=== PATIENT | female | born 1945 | race Caucasian/White ===

== ENCOUNTER 2019-04-21 21:49 | Inpatient (IN) ==
[2019-04-21 23:04] LABS: AGAP 20; ALB/GLOB RATIO 1.4; ALBUMIN 4.9 g/dL (3.5-5.0); ALKALINE PHOSPHATASE 119 U/L (32-104); AMYLASE 64 U/L (20-200); BUN 17 mg/dL (8-22); CALCIUM 10.7 mg/dL (8.8-10.2); CHLORIDE 99 mmol/L (98-107); COSMO 289; CREATININE 0.9 mg/dL (0.5-0.9); ESTIMATED GFR > 60; GLUCOSE 175 mg/dL (70-104); GOT 14 U/L (10-30); GPT 9 U/L (10-36); LIPASE 14 U/L (13-60); POTASSIUM 4.2 mmol/L (3.5-5.1); SODIUM 142 mmol/L (136-145); TCO2 23 mmol/L (25-35); TOTAL BILIRUBIN 0.27 mg/dL (0.20-1.00); TOTAL PROTEIN 8.3 g/dL (6.3-8.3)
[2019-04-21 23:06] LABS: BASO# 0.03 X1000 (0.0-0.2); BASO% 0.2 % (0.0-0.8); EOS# 0.05 X1000 (0.0-0.7); EOS% 0.3 % (0.0-10.0); HEMATOCRIT 44.6 % (37.0-47.0); HEMOGLOBIN 14.2 g/dL (12.0-16.0); IMM GRAN# 0.03 X1000 (0.0-0.04); IMM GRAN% 0.2 % (0.0-0.5); LYMPH# 1.76 X1000 (1.2-3.4); LYMPH% 10.7 % (20.5-51.1); MCH 23.4 PG (27-31); MCHC 31.8 g/dL (33-37); MCV 73.6 FL (81-99); MONO% 5.5 % (1.7-9.3); MPV 9.2 FL (7.4-10.4); NEUT# 13.63 X1000 (1.4-6.5); NEUT% 83.1 % (42.2-75.2); PLT 649 X1000 (130-400); RBC 6.06 XMIL (4.2-5.4); RDW 16.1 % (11.5-14.5)
[2019-04-22] MEDS ORDERED: MORPHINE IV ONE (00:54)
[2019-04-22] MEDS ORDERED: BENTYL IM ONE (00:54)
[2019-04-22] MEDS ORDERED: ZOFRAN IV ONE ×2 (00:54→02:26)
[2019-04-22] MEDS ORDERED: NS 1,000 ML IV ONE (00:54)
[2019-04-22] MEDS ORDERED: FENTANYL IV ONE (02:26)
--- NOTE | 2019-04-22 04:09 | PROVIDER DOCUMENTATION ---
This chart was entered by Stefanie Santoyo Scribe, acting as scribe for Fernandez Chan MD. HPI-General Adult - General Chief Complaint: Nausea/Vomiting Stated Complaint: VOMITING, HURTING Time Seen by Provider: 04/22/19 00:47 Source: patient Allergies/Adverse Reactions: Patient Allergies Allergy/AdvReac Type Severity Reaction Status Date / Time ciprofloxacin [From Cipro] Allergy Unknown Verified 08/20/17 20:38 Tetracyclines Allergy Unknown Verified 08/20/17 20:38 Home Medications: Home Medication List Medication Instructions Recorded Confirmed Last Taken Type Amitriptyline [Elavil] 25 mg PO HS 08/21/17 08/21/17 Unknown History Amlodipine/Atorvastatin 1 each PO 08/21/17 Unknown History [Amlodipine-Atorvast 5-40 mg] Chlordiazepoxide/Clidinium Br 4XDAY 08/21/17 Unknown History [Chlordiazepoxide-Clidinium Cap] Clonazepam [Klonopin] 0.5 mg PO 08/21/17 Unknown History Hydrochlorothiazide 25 mg PO 08/21/17 Unknown History Hydrocodone/Acetaminophen [Wilmer 1 each PO 08/21/17 Unknown History 7.5-325 Tablet] Nizatidine [Axid] 150 mg PO 08/21/17 Unknown History Metformin E.r. [Glucophage Xr] 500 mg PO BID CC 08/22/17 08/22/17 08/20/17 00:00 History 1 - History of Present Illness -Gen Adult Nature of Presenting Problems: pt is a 73 yr old female presenting with 1 day complaint of abdominal pain, nausea, vomiting and loose stool. pt has ostomy, reports filling with loose stool, no fever/chills, no other complaints Location of Pain/Injury: reports: abdomen Pain Radiation: reports: no radiation Quality of Pain: reports: cramping, dull Severity: reports: moderate Onset/Duration: reports: this afternoon Timing: reports: still present Context/Activities at Onset: reports: light activity Modifying Factors: improves with: other medication Associated Symptoms: reports: diarrhea, nausea, vomiting. denies: back/neck pain, fever/chills, genitourinary problems, shortness of breath Similar Symptoms Previously?: No Recently seen or treated by another doctor?: No Review of Systems - Adult - REVIEW OF SYSTEMS - ADULT Constitutional: denies: chills, fever Eyes: reports: no symptoms reported Ears, Nose, Mouth & Throat: reports: no symptoms reported Cardiovascular: denies: chest pain, palpitations, syncope Respiratory: denies: cough, shortness of breath Gastrointestinal: reports: abdominal pain, diarrhea, nausea, vomiting Genitourinary: reports: no symptoms reported Musculoskeletal: reports: no symptoms reported Integumentary: reports: no symptoms reported Neurological: reports: no symptoms reported Psychiatric: reports: no symptoms reported Endocrine: reports: no symptoms reported Hematologic/Lymphatic: reports: no symptoms reported Allergic/Immunologic: reports: no symptoms reported All Other Systems: Reviewed and Negative Past History - Adult - PAST MEDICAL HISTORY-ADULT Review of Records: reports: Old Records Reviewed, Nursing Assessment Review, Medications Reviewed, Social history reviewed & non-contributory. Major Childhood Illnesses: reports: denies history Cardiovascular: reports: HTN Respiratory: reports: denies history Gastrointestinal: reports: cancer (colon), other (diverticulitis) Obstetrical/Gynecological: reports: denies history Genitourinary: reports: denies history Musculoskeletal: reports: denies history Neurological: reports: denies history Endocrine/Immune: reports: Diabetes Other Conditions: reports: denies history - PRIOR SURGERIES/PROCEDURES Surgical/Procedure History: reports: other (colostomy) - IMMUNIZATION STATUS Childhood Immunizations: See Nurse Assessment Flu Vaccine: See Nurse Assessment - FAMILY HISTORY Family History: reviewed, not pertinent - SOCIAL HISTORY Smoking: quit greater than 1 year Substance Use: denies Living Situation: family Physical Exam-General - PHYSICAL EXAM-ADULT Initial Vital Signs Reviewed: Yes - CONSTITUTIONAL General Appearance: appears well, alert, no apparent distress, obese - EYES Eyes: PERRL/EOMI - HEAD, EARS, NOSE, MOUTH & THROAT HENMT: normocephalic/atraumatic, moist mucous membranes - NECK Neck: non-tender, full range of motion, supple, normal inspection - RESPIRATORY Respiratory: chest non-tender, lungs clear, normal breath sounds - CARDIOVASCULAR Cardiovascular: normal peripheral pulses, regular rate, rhythm - GASTROINTESTINAL (ABDOMEN) Abdominal Exam: normal bowel sounds, non tender, soft - LYMPHATIC Lymphatic: no adenopathy - MUSCULOSKELETAL Back Exam: normal inspection, no CVA tenderness, no vertebral tenderness Extremity: normal range of motion, non-tender, normal inspection - SKIN Integumentary: normal color, normal turgor, warm/dry - NEUROLOGIC Neurologic: grossly normal, no motor/sensory deficits - PSYCHIATRIC Psych/Mental Status: normal mood/affect Progress - PLAN OF CARE/RESULTS Progress/Plan/Lab Results: Vital Signs - 8 hr 04/21/19 22:15 Temperature 98.2 F Pulse Rate 114 H Respiratory Rate 16 Blood Pressure 160/73 O2 Sat by Pulse Oximetry 97 Laboratory Results - last 24 hr 04/21/19 04/21/19 22:27 22:27 WBC 16.40 H RBC 6.06 H Hgb 14.2 Hct 44.6 MCV 73.6 L MCH 23.4 L MCHC 31.8 L RDW Std Deviation 16.1 H Plt Count 649 H MPV 9.2 Immature Gran % (Auto) 0.2 Neut % (Auto) 83.1 H Lymph % (Auto) 10.7 L Owsley % (Auto) 5.5 Eos % (Auto) 0.3 Baso % (Auto) 0.2 Immature Gran # (Auto) 0.03 Neut # (Auto) 13.63 H Lymph # (Auto) 1.76 Owsley # (Auto) 0.90 H Eos # (Auto) 0.05 Baso # (Auto) 0.03 Sodium 142 Potassium 4.2 Chloride 99 Carbon Dioxide 23 L Anion Gap 20 BUN 17 Creatinine 0.9 Estimated GFR/1.73 m2 > 60 BUN/Creatinine Ratio 19 Glucose 175 H Calculated Osmolality 289 Calcium 10.7 H Total Bilirubin 0.27 AST 14 ALT 9 L Alkaline Phosphatase 119 H Total Protein 8.3 Albumin 4.9 Globulin 3.4 Albumin/Globulin Ratio 1.4 Amylase 64 Lipase 14 Orders Category Date Time Status CT ABD/PELVIS W/PO AND IV CON [CT] Stat Exams 04/22/19 00:53 Ordered AMYLASE [CHEM] Stat Lab 04/21/19 22:27 Completed CBC WITH ELECTRONIC DIFF [HEME] Stat Lab 04/21/19 22:27 Completed COMPREHENSIVE METABOLIC PANEL [CHEM] Stat Lab 04/21/19 22:27 Completed LIPASE [CHEM] Stat Lab 04/21/19 22:27 Completed UA NIMS W/REFLEX CULT [URINALYSIS] Stat Lab 04/21/19 22:33 Uncollected 0.9% Sodium Chloride Inj [Ns] 1,000 ml Med 04/22/19 00:54 Active IV 999 mls/hr Dicyclomine [Bentyl] Med 04/22/19 00:54 Discontinued 20 mg IM NOW ONE Morphine Med 04/22/19 00:54 Discontinued 4 mg IV NOW ONE Ondansetron [Zofran] Med 04/22/19 00:54 Discontinued 8 mg IV NOW ONE CT shows SBO, NG placed, spoke with Dr. Arzola and he will consult, will admit to the hospitalist Result Diagrams: 04/21/19 22:27 04/21/19 22:27 Departure - Departure Date of Disposition Decision: 04/22/19 Time of Disposition Decision: 04:09 DIAGNOSIS: Small bowel obstruction Disposition: ADMITTED INPATIENT Certified Medical Emergency: Emergent Condition: Stable Referrals and Follow-Ups: Bong Linton [Primary Care Provider] - - Critical Care Note This patient required my direct & personal management of CC.: No Attestation - Physician/ LEIDA Attestation Patient care was provided by Advanced Practice Provider:: No The physician spent face to face time with patient:: Yes Advanced Practice Provider documentation review:: Supervising physician onsite and consulted in the evaluation and care of this patient. The physician did have a face to face encounter with the patient. This chart was documented by the indicated scribe, (Stefanie Santoyo Scribe) and accurately reflects the services I performed and decisions made by me, Fernandez Chan MD, as attested by the provider's signature.
[2019-04-22] MEDS ORDERED: DILAUDID IV ONE (05:11)
[2019-04-22] MEDS ORDERED: SODIUM CHLORIDE 0.9% INJ ONE (05:12)
[2019-04-22] MEDS ORDERED: PHENERGAN IV ONE (05:12)
--- NOTE | 2019-04-22 07:23 | Diag Imaging Result Doc PS360 ---
EXAM: KUB ABDOMEN HISTORY: NG TUBE PLACEMENT TECHNIQUE: Single view COMPARISON: 08/21/2017 FINDINGS: A nasogastric tube overlies the esophagus and stomach. The stomach is distended with air. No free air beneath the diaphragm. No organomegaly. Intravenous contrast is present in the collecting systems. IMPRESSION: Nasogastric tube appears to be within the stomach Electronically signed by Ishmael Dixon 04/22/2019 7:20 AM
--- NOTE | 2019-04-22 07:59 | HISTORY AND PHYSICAL ---
PRIMARY CARE PROVIDER: Dr. Bong Linton. DATE AND TIME: 04/22/2019 at 0530. CHIEF COMPLAINT: Abdominal pain with nausea and vomiting. HISTORY OF PRESENT ILLNESS: Ms. Manrique is a 73-year-old female with a past medical history most notable for a history of rectal cancer status post abdominoperineal resection with colostomy placement and pelvic floor reconstruction. The patient also does have a history of diverticulitis, as well as history of a small bowel obstruction in July of 2017. The patient states that since Thursday she has not been feeling well. She has been having periumbilical and left upper quadrant abdominal pain that she states is a constant pain. She reported that at this time it is a constant dull ache that is a 3/10, though previously her pain was much worse, though since receiving pain medicine in the ER, her pain has improved. She also states that since Thursday she has been having nausea and vomiting. She reports that in the last 24 hours she has vomited approximately 7 times. She denies any hematemesis or coffee-ground appearing emesis. She also did state that she noticed a change in her stool consistency in her colostomy bag, that it had been much more loose than normal, though she denies any fever, body aches, or chills. She denies any dizziness, headache, chest pain, shortness of breath or cough. She reported that she just recently was treated for urinary tract infection and has a history of chronic urinary tract infections, though is not reporting any symptoms at this time. She denies any dysuria or urinary frequency. She does have some aches and pains from her reported arthritis, though states this pain is like her usual arthritic pain and is not changed in nature or intensity. Other than this, she denies any other numbness, tingling, or swelling in extremities. On evaluation in the ER, patient was noted to have leukocytosis with a white blood cell count of 16,400. We are still awaiting urinalysis results at this time, though CT abdomen and pelvis with IV contrast only. From what I understand the patient was not able to tolerate oral contrast. It did show a moderate partial small bowel obstruction with transient point in the left hemipelvis. There was no free air or pneumatosis identified. The patient has since had an NG tube placed. We are awaiting to confirm placement at this time, though she did report that her pain and nausea have improved. She will be admitted to the surgical floor for further evaluation of small bowel obstruction. REVIEW OF SYSTEMS: A 14 point review of systems was conducted with the patient. All were negative, except for pertinent positives mentioned in the above HPI. PAST MEDICAL HISTORY: 1. History of rectal cancer. 2. Pernicious anemia. 3. Chronic urinary tract infections. 4. Hypertension. 5. Anxiety. 6. Diabetes mellitus. 7. Gastroesophageal reflux disease. 8. Peptic ulcer disease. 9. Depression. 10. Bladder spasms. PAST SURGICAL HISTORY: 1. Abdominoperineal resection. 2. Colostomy placement. 3. Pelvic floor reconstruction. 4. Laparoscopic cholecystectomy. 5. Bilateral total knee replacement. SOCIAL HISTORY: The patient is a former smoker, though quit smoking many years ago. There is no known alcohol or illicit drug use. FAMILY HISTORY: Positive for her father having a history of heart disease. There is also a family history of hemochromatosis and diverticulitis. ALLERGIES: Patient has allergies to tetracycline and ciprofloxacin. HOME MEDICATIONS: 1. Elavil 25 mg p.o. at bedtime. 2. Amlodipine-atorvastatin 5--40 mg tablet 1 p.o. at bedtime. 3. Keflex 250 mg p.o. at bedtime. 4. Clonazepam 0.5 mg p.o. daily. 5. Vitamin B 12 1000 mcg IM as directed. 6. Dicyclomine 20 mg p.o. 4 times a day. 7. Trulicity 0.75 mg subcutaneous q. 7 days. 8. Hydrochlorothiazide 25 mg p.o. q.a.m. 9. Halliday 7.5 mg tablet 1 p.o. t.i.d. p.r.n. for pain. 10. Meclizine 25 mg p.o. t.i.d. p.r.n. for dizziness. 11. Metformin extended release 1000 mg p.o. b.i.d. 12. Nizatidine 150 mg p.o. b.i.d. 13. Zofran 4 mg p.o. four times a day. 14. MiraLAX 17 g p.o. daily. 15. Tolterodine tartrate extended release 4 mg capsule p.o. q.a.m. DIAGNOSTIC DATA: White blood cell count is 16,400, hemoglobin is 14.2, hematocrit is 44.6, platelet count is 649. Sodium 142, potassium 4.2, chloride 99, serum bicarbonate is 23. BUN 17, creatinine 0.9, GFR greater than 60. Glucose is 175, calcium 10.7. Liver function tests within normal limits, except for alkaline phosphatase is slightly elevated at 119. Amylase 64, lipase 14. CT abdomen and pelvis with IV contrast only showed a previous cholecystectomy with stable common bile duct dilation. There was no evidence for cholelithiasis. There was stable moderate proximal and mid small bowel distention with a transition point in the left hemipelvis. There was no pneumatosis or free air, and a stable fatty-containing periumbilical hernia, stable bladder prolapse and peristomal hernia containing loops of nondilated small bowel and colon. The radiologist's impression did note a moderate partial small bowel obstruction with transition point in the left hemipelvis. Pending diagnostic studies at this time are a urinalysis, magnesium, PT, PTT, and an x-ray abdomen for NG tube placement confirmation. PHYSICAL EXAMINATION: VITAL SIGNS: Most recent vital signs available at this time were temperature 98.2 degrees, heart rate 114, respirations 16, blood pressure is 160/73, oxygen saturation is 97% on room air. GENERAL: Ms. Manrique is a pleasant 73-year-old female. She was resting in the ER stretcher. She was in no acute distress. She was resting with her eyes closed, was easily arousable with verbal stimulation. The patient has received pain medication prior to my examination. Though once awoken, she was alert and oriented to person, place and time. She was able to answer questions appropriately and follow commands. HEENT: Head is atraumatic, normocephalic. Pupils are equal, round, reactive to light, were 3 mm bilaterally and brisk. Oral mucosa was slightly dry. Oropharynx is clear. NECK: Supple. Trachea midline. CARDIOVASCULAR: Patient has S1, S2. No murmurs, gallops, rubs appreciated with a slightly tachycardic rate that is regular. PULMONARY: Patient has symmetrical chest expansion bilaterally. Lung sounds are clear to auscultation in bilateral full garrett. ABDOMEN: Soft. She is tender upon palpation in the periumbilical area, as well as the left upper and lower quadrants. The abdomen does appear to be slightly distended. She does have a colostomy noted in the left lower abdomen. Bowel sounds were present, though were hypoactive. EXTREMITIES: No cyanosis or edema noted. Pulse, motor, and sensory were intact in all extremities. Radial pulses and pedal pulses were 2+ bilaterally. INTEGUMENTARY: The patient's skin is pink, warm, and dry. NEUROLOGICAL: Patient is alert and oriented to person, place, time and situation. She is able to move all extremities. There are no focal neurological deficits noted. ASSESSMENT AND PLAN: 1. Small bowel obstruction. We will place the patient on nothing by mouth. She has had a nasogastric tube placed in the emergency room. We are awaiting abdomen x-ray to confirm placement. We will provide gentle intravenous hydration, as-needed antiemetics and pain medication. We have placed a consultation with surgeon, Dr. Arzola. Will await their evaluation and further recommendations for management. 2. Nausea, vomiting. We will continue with as-needed antiemetics as mentioned above, as well as intravenous hydration. 3. Diabetes mellitus. We will hold the patient's regularly prescribed diabetic medications given that she is on nothing by mouth. We will do pattern fingerstick blood sugars, though we will place her on a patient-specific sliding scale regular insulin. We will continue to monitor closely. 4. Deep vein thrombosis prophylaxis. We provided with sequential compression devices. The patient has been placed on the surgical floor with telemetry. She will have vital signs every 6 hours. We will do strict intake and output. We will repeat a CBC and BMP this morning as well. The patient did have some leukocytosis noted, though there is no known source of infection at this time. She denies any fever, body aches, or chills. We are awaiting a urinalysis, though this could be a reactive elevation given that she has had several episodes of nausea and vomiting. Further orders and recommendations pending hospital course, diagnostic studies. And physician evaluation. Dictated by CINTIA Khoury for Danyel Dutton MD cc: Danyel Dutton MD Patient presenting with abdominal pain, nausea, vomiting. Ct abd/pelvis report as below: CT abdomen and pelvis with IV contrast only showed a previous cholecystectomy with stable common bile duct dilation. There was no evidence for cholelithiasis. There was stable moderate proximal and mid small bowel distention with a transition point in the left hemipelvis. There was no pneumatosis or free air, and a stable fatty-containing periumbilical hernia, stable bladder prolapse and peristomal hernia containing loops of nondilated small bowel and colon. The radiologist's impression did note a moderate partial small bowel obstruction with transition point in the left hemipelvis I concur with the assessment and plan of the [facility]. Dr. Dutton. [facility]
--- NOTE | 2019-04-22 08:06 | Diag Imaging Result Doc PS360 ---
EXAM: CT ABD/PELVIS W/PO AND IV CON HISTORY: n/v, periumbilical pain TECHNIQUE: CT abdomen and pelvis with intravenous contrast COMPARISON: 08/20/2017 FINDINGS: The gallbladder has been removed. There is likely mild fatty infiltration of the liver. Small hiatal hernia. Normal spleen, pancreas, and adrenal glands. There is renal scarring. Small renal cysts. No hydronephrosis. Severe atherosclerosis. The stomach is distended. There is a lower left abdominal and pelvic lateral wall hernia containing multiple small bowel loops and colon. These bowel loops are not dilated and there is no wall thickening. There are other small bowel loops in the left abdomen and pelvis which are dilated. Transition appears to be low in the left pelvis. Prominent stool throughout the colon. No ascites. There are postsurgical changes in the pelvis. The urinary bladder is low lying. Small fat filled umbilical hernia. Prominent degenerative changes throughout the lumbar spine. IMPRESSION: 1.Small bowel obstruction with transition in the left pelvis 2.Abdominal wall hernias 3.Small hiatal hernia 4.Constipation 5.Cholecystectomy 6.Severe atherosclerosis 7.Prolapse urinary bladder 8.A pulmonary report was given at 3:49 AM This exam was performed using automated exposure control, adjustment of mA or kV according to patient size, and/or use of iterative reconstruction technique. Electronically signed by Ishmael Dixon 04/22/2019 8:04 AM
[2019-04-22] MEDS ORDERED: SODIUM CHLORIDE 0.9% INJ PRN (08:11)
--- NOTE | 2019-04-22 08:20 | Diag Imaging Result Doc PS360 ---
EXAM: CHEST-1 VIEW HISTORY: Sepsis protocol TECHNIQUE: Single view COMPARISON: 08/21/2017 FINDINGS: The lungs are well expanded. Nasogastric tube overlies the esophagus and stomach. The heart is not enlarged. The vessels are not distended. There are no infiltrates. No effusion identified. IMPRESSION: No pneumonia Electronically signed by Ishmael Dixon 04/22/2019 8:17 AM
[2019-04-22 08:47] LABS: BASO# 0.02 X1000 (0.0-0.2); BASO% 0.1 % (0.0-0.8); HEMATOCRIT 41.6 % (37.0-47.0); HEMOGLOBIN 13.4 g/dL (12.0-16.0); IMM GRAN# 0.04 X1000 (0.0-0.04); IMM GRAN% 0.2 % (0.0-0.5); LYMPH# 0.98 X1000 (1.2-3.4); LYMPH% 5.1 % (20.5-51.1); MCH 23.8 PG (27-31); MCHC 32.2 g/dL (33-37); MONO# 0.87 X1000 (0.11-0.59); MONO% 4.5 % (1.7-9.3); MPV 8.9 FL (7.4-10.4); NEUT% 90.1 % (42.2-75.2); PLT 557 X1000 (130-400); RBC 5.62 XMIL (4.2-5.4); WBC 19.31 X1000 (4.8-10.8)
[2019-04-22 08:57] LABS: INR 0.98
[2019-04-22 08:58] LABS: PTT 29.4 Seconds (22.3-41.8)
[2019-04-22 09:26] LABS: AGAP 19; BUN 18 mg/dL (8-22); CALCIUM 10.2 mg/dL (8.8-10.2); CHLORIDE 100 mmol/L (98-107); COSMO 283; CREATININE 0.9 mg/dL (0.5-0.9); ESTIMATED GFR > 60; GLUCOSE 164 mg/dL (70-104); POTASSIUM 4.4 mmol/L (3.5-5.1); SODIUM 139 mmol/L (136-145); TCO2 20 mmol/L (25-35)
[2019-04-22] MEDS ORDERED: ZOFRAN IV PRN (10:00)
[2019-04-22] MEDS: PHENERGAN IV PRN ×2 (10:33→18:47)
[2019-04-22] MEDS: NS 1,000 ML IV SCH ×2 (10:33→18:46)
[2019-04-22] MEDS: PROTONIX IV SCH (10:33)
[2019-04-22] MEDS: HUMULIN R SUBQ SCH ×3 (10:34→21:01)
--- NOTE | 2019-04-22 12:07 | GENERAL SURGERY PROGRESS NOTE ---
DATE: 04/22/2019 CHIEF COMPLAINT: Nausea, vomiting, decreased colostomy output. REASON FOR CONSULTATION: Bowel obstruction. HISTORY OF PRESENT ILLNESS: This 73-year-old female has a history of an abdominoperineal resection many years ago for a low rectal cancer by Dr. Salas. She had a subsequent pelvic floor reconstruction due to what sounds like a perineal hernia. She has had a long-standing peristomal hernia as well that is not really cause her any issues, and she has had several bowel obstructions that have resolved with nonoperative management in the past as well. She came to the ER with about a week of feeling generally poorly. She developed nausea, vomiting and decreased ostomy output over the last day, describes mostly liquid output, and CT scan obtained that showed a bowel obstruction not related to a paraesophageal hernia. NG tube was placed. She feels much better. MEDICAL HISTORY: History of rectal carcinoma, pernicious anemia, recurrent and chronic UTIs, hypertension, anxiety, diabetes, gastroesophageal reflux disease, history of peptic ulcer, depression. SURGICAL HISTORY: Abdominoperineal resection, pelvic floor reconstruction with mesh, laparoscopic cholecystectomy and bilateral total knees. SOCIAL HISTORY: She did smoke in the past, but none current. No alcohol. No drugs. She has a daughter here with her. FAMILY HISTORY: Reviewed and noncontributory. REVIEW OF SYSTEMS: A 10-point review of systems is negative other than what is mentioned in the HPI. MEDICATIONS: Her medication list is extensive including 15 medications, but I do not see any anticoagulants. OBJECTIVE: Vital Signs: On exam, she is afebrile, pulse 94, blood pressure 153/68, oxygen saturation 92% on room air. General: She is alert, in no acute distress. HEENT: No scleral icterus. Neck: No cervical masses. Cardiovascular: Normal rate. Pulmonary: No increased work of breathing. Abdomen: Soft, nontender, nondistended. Her left lower quadrant ostomy is in place. I do not palpate a hernia here, but on her skin there is one. NG tube in place with bilious output. Integument: Warm, dry without jaundice. Psychiatric: Appropriate affect. Neurologic: No gross deficits. Peripheral vascular: She does have some lower extremity edema. Lymphatic: No cervical or inguinal adenopathy. LABS AND X-RAYS: White count 19, hematocrit 41, creatinine 0.9. Troponins have been negative. LFTs were normal with the exception of mild elevation of alkaline phosphatase. Her lactate is 1.4. I reviewed her CT scan. ASSESSMENT AND PLAN: A 73-year-old female with a bowel obstruction. She has a complicated surgical history. She does have a peristomal hernia, but this does not seem to seem to be the transition point. We will continue nasogastric tube decompression, intravenous hydration, and serial abdominal examinations going forward. I discussed the plan with patient. cc: Nestor Arzola MD
--- NOTE | 2019-04-22 19:13 | Diag Imaging Result Doc PS360 ---
EXAM: CHEST-PORTABLE HISTORY: NG placement verification TECHNIQUE: Single view COMPARISON: 7:51 AM FINDINGS: Nasogastric tube overlies the esophagus and stomach. This is in good position. Electronically signed by Ishmael Dixon 04/22/2019 7:11 PM
[2019-04-22] MEDS: MORPHINE IV PRN (19:54)
[2019-04-23] MEDS: HUMULIN R SUBQ SCH ×4 (06:03→21:05)
--- NOTE | 2019-04-23 08:27 | Diag Imaging Result Doc PS360 ---
EXAM: KUB ABDOMEN - 04/23/2019 HISTORY: SBO TECHNIQUE: Portable AP spine abdomen COMPARISON: 04/22/2019 FINDINGS: There is a nasogastric tube is tip at expected location of mid stomach. The bowel gas pattern appears nonspecific. There is gas visible in small bowel there is no substantial gaseous small bowel distention identified. There are gas and retained fecal debris visible in nondistended colon. IMPRESSION: Nonspecific bowel gas pattern. Electronically signed by Ventura Moreno 04/23/2019 8:25 AM
[2019-04-23] MEDS ORDERED: CHLORASEPTIC SPRAY MT PRN (09:08)
[2019-04-23] MEDS: PROTONIX IV SCH (09:24)
[2019-04-23] MEDS: SODIUM CHLORIDE 0.9% INJ SCH (09:25)
[2019-04-23] MEDS: LOVENOX SUBQ SCH (11:30)
[2019-04-23] MEDS: LR 1,000 ML IV SCH (11:30)
--- NOTE | 2019-04-23 11:55 | GENERAL SURGERY PROGRESS NOTE ---
DATE: 04/23/2019 SUBJECTIVE: Feels some better. NG tube output is bilious gastric contents. No fevers. OBJECTIVE: Vitals: Pulse 97, blood pressure 137/71, oxygen saturation 100%. General: She is alert. Abdomen: Soft, nontender, nondistended. Ostomy has no stool or gas in the bag. NG tube is in place. DIAGNOSTIC DATA: Glucose 111, otherwise no new labs. ASSESSMENT AND PLAN: This is a 73-year-old female, with a complicated surgical history. She has a bowel obstruction. She has had these in the past, and we will continue NG tube decompression, bowel rest, and IV fluids. cc: Nestor Arzola MD
--- NOTE | 2019-04-23 13:41 | PROGRESS NOTE ---
DATE: 04/23/2019 This morning Ms. Manrique refers to be doing a little better. She says she has some soreness in her throat, but no vomiting and abdominal pain has significantly improved. OBJECTIVE: Vital signs: Blood pressure is 166/57, pulse of 93, respirations 19, temperature 98.2 degrees. The patient is saturating 98% on room air. General: Ms. Manrique is a 73-year-old is female. She is in bed, no distress. HEENT: Mucosa is pink and moist. Anicteric. Acyanotic. Neck: Supple. Chest: Clear to auscultation. There were no crepitations, no rhonchi. Cardiovascular: Regular rate and rhythm. Abdomen: Soft, is distended. Bowel sounds are present but extremely hypoactive. There is an ostomy on the left lower abdomen, which is completely empty. Extremities: No pedal edema. EXCELSIOR PICKER: Patient is awake, alert, and oriented. NG tube is still in place. IMAGING STUDIES: A KUB this morning shows nonspecific bowel gas pattern. ASSESSMENT: 1. Small bowel obstruction. Patient is currently NPO. NG tube is in place for GI decompression. We will continue with adequate fluid resuscitation and replacement of all electrolytes. 2. Diabetes mellitus, controlled. 3. Overweight with BMI of 28.5. 4. Large abdominal wall hernias. Patient is aware. 5. Small hiatal hernia reported on a CT scan. 6. Severe atherosclerosis. The patient will be started on statin drug once p.o. route is being utilized. PLAN: So, in general, we will continue with the NG tube hydration and replacement of electrolytes and await for bowel action. Discussed my findings and the plan with Ms. Manrique. The was at the bedside. Of note, I went to see Ms. Manrique yesterday twice. However, she was sleeping on either attempts that I made to see her. The was at the bedside all the time on both attempts. cc: Federico Troncoso MD
[2019-04-23] MEDS: MORPHINE IV PRN (23:08)
[2019-04-24] MEDS: MORPHINE IV PRN ×2 (02:08→21:33)
[2019-04-24] MEDS: LR 1,000 ML IV SCH ×3 (03:53→20:24)
[2019-04-24] MEDS ORDERED: ATIVAN IV PRN (04:05)
[2019-04-24] MEDS: HUMULIN R SUBQ SCH ×3 (06:13→20:24)
[2019-04-24] MEDS: SODIUM CHLORIDE 0.9% INJ SCH (09:01)
[2019-04-24] MEDS: PROTONIX IV SCH (09:01)
[2019-04-24] MEDS: LOVENOX SUBQ SCH ×2 (09:01→13:35)
[2019-04-24 10:08] LABS: BASO# 0.03 X1000 (0.0-0.2); BASO% 0.2 % (0.0-0.8); EOS# 0.03 X1000 (0.0-0.7); EOS% 0.2 % (0.0-10.0); HEMATOCRIT 34.8 % (37.0-47.0); HEMOGLOBIN 11.1 g/dL (12.0-16.0); IMM GRAN# 0.03 X1000 (0.0-0.04); IMM GRAN% 0.2 % (0.0-0.5); LYMPH# 1.41 X1000 (1.2-3.4); LYMPH% 9.7 % (20.5-51.1); MCH 24.1 PG (27-31); MCHC 31.9 g/dL (33-37); MCV 75.5 FL (81-99); MONO# 1.15 X1000 (0.11-0.59); MONO% 7.9 % (1.7-9.3); MPV 8.9 FL (7.4-10.4); NEUT# 11.91 X1000 (1.4-6.5); NEUT% 81.8 % (42.2-75.2); PLT 419 X1000 (130-400); RBC 4.61 XMIL (4.2-5.4); RDW 16.1 % (11.5-14.5); WBC 14.56 X1000 (4.8-10.8)
[2019-04-24 10:26] LABS: AGAP 20; BUN 13 mg/dL (8-22); CHLORIDE 102 mmol/L (98-107); COSMO 290; CREATININE 0.6 mg/dL (0.5-0.9); ESTIMATED GFR > 60; GLUCOSE 113 mg/dL (70-104); POTASSIUM 3.2 mmol/L (3.5-5.1); SODIUM 145 mmol/L (136-145); TCO2 23 mmol/L (25-35)
[2019-04-24] MEDS ORDERED: MAGNESIUM SULFATE 2 GM/S.W.I. 2 GM/50 ML IVPB IV ONE (13:35)
--- NOTE | 2019-04-24 13:42 | PROGRESS NOTE ---
DATE: 04/24/2019 SUBJECTIVE: This morning, Ms. Manrique refers to be feeling okay, but she was more nauseated. NG tube was still in place. She has had about 50 documented to have been removed. OBJECTIVE: Vital Signs: Blood pressure is 176/57, pulse of 83, respirations 21, temperature 99.2 degrees. General: Ms. Manrique is a 73-year-old female. She was in bed. No distress. HEENT: Mucosa is pink and moist. Anicteric and acyanotic. Neck: Supple. Chest: Good air entry bilaterally. No crepitations. No rhonchi. Cardiovascular: Regular rate and rhythm. GI: Abdomen was soft, distended, but nontender. Bowel sounds present, but hypoactive. There is an ostomy on the left lower abdomen, which is empty. Extremities: No pedal edema. MUSIC DIRECTOR: The patient is awake, alert, and oriented. IMAGING: No imaging studies today. LABORATORY DATA: WBC is 14.56, hemoglobin is 11.1, platelet count of 419,000. Chemistry is also reviewed. Potassium is 3.2. Rest of chemistry is unremarkable. Magnesium is 1.5. ASSESSMENT: 1. Small-bowel obstruction. The patient continues to be on nasogastric tube for gastrointestinal decompression, nothing by mouth. Will continue with fluid resuscitation, and we will replace all her electrolyte abnormalities. 2. Diabetes mellitus. Controlled. 3. Large inoperable abdominal wall hernias. The patient is aware. 4. Small hiatal hernia on CT scan. Noted. 5. Severe abdominal aortic atherosclerosis. Noted. In general, Ms. Manrique does not seem to have had any output at all in her colostomy. She is presumed to be obstructed still. I think there is a plan from Surgery to do a small-bowel follow- through, which I think is needed. Will follow up with them on that. cc: Federico Troncoso MD
[2019-04-24] MEDS: POTASSIUM CHLORIDE 20 MEQ/SWI 20 MEQ/100 ML IVPB IV SCH ×2 (14:22→20:23)
--- NOTE | 2019-04-24 14:44 | GENERAL SURGERY PROGRESS NOTE ---
DATE: 04/24/2019 SUBJECTIVE: No ostomy output. No nausea or vomiting. NG tube is somewhat bothersome. She is not really moving around much. OBJECTIVE: Vital Signs: Currently afebrile, pulse 86, blood pressure 176/57, oxygen saturation 96% on room air. General: She is alert. Abdomen: Soft, nontender. Ostomy bag is flat with no stool and no gas. Integument: Warm and dry. LABORATORY DATA: White count 14, hematocrit 34. Creatinine 0.6. ASSESSMENT AND PLAN: This is a 73-year-old female with bowel obstruction. She has a complicated surgical history. Will continue nasogastric tube decompression. I have encouraged her to be out of bed and ambulate as much as possible, and aggressive pulmonary toileting. We need to correct her electrolytes with goal of potassium greater than 4, magnesium greater than 2. Continue to follow along. May get a small-bowel follow-through tomorrow. cc: Nestor Arzola MD
[2019-04-25] MEDS: MORPHINE IV PRN ×7 (00:43→21:30)
[2019-04-25] MEDS: LR 1,000 ML IV SCH ×2 (06:31→14:25)
[2019-04-25] MEDS: HUMULIN R SUBQ SCH ×4 (06:36→21:33)
[2019-04-25 08:07] LABS: HEMATOCRIT 34.4 % (37.0-47.0); HEMOGLOBIN 11.1 g/dL (12.0-16.0); MCH 24.4 PG (27-31); MCHC 32.3 g/dL (33-37); MCV 75.8 FL (81-99); MPV 9.1 FL (7.4-10.4); RBC 4.54 XMIL (4.2-5.4); RDW 16.4 % (11.5-14.5); WBC 14.59 X1000 (4.8-10.8)
[2019-04-25 08:26] LABS: AGAP 17; ALBUMIN 3.9 g/dL (3.5-5.0); BUN 11 mg/dL (8-22); CALCIUM 9.4 mg/dL (8.8-10.2); CHLORIDE 100 mmol/L (98-107); COSMO 282; CREATININE 0.6 mg/dL (0.5-0.9); ESTIMATED GFR > 60; GLUCOSE 120 mg/dL (70-104); MAGNESIUM 1.6 mg/dL (1.5-2.7); PHOSPHORUS 3.1 mg/dL (2.7-4.5); POTASSIUM 3.3 mmol/L (3.5-5.1); SODIUM 141 mmol/L (136-145); TCO2 24 mmol/L (25-35)
[2019-04-25] MEDS ORDERED: MAGNESIUM SULFATE 2 GM/S.W.I. 2 GM/50 ML IVPB IV ONE (08:57)
[2019-04-25] MEDS: LOVENOX SUBQ SCH (10:10)
[2019-04-25] MEDS: SODIUM CHLORIDE 0.9% INJ SCH (10:10)
[2019-04-25] MEDS: POTASSIUM CHLORIDE 20 MEQ/SWI 20 MEQ/100 ML IVPB IV SCH ×2 (10:10→14:24)
[2019-04-25] MEDS: PROTONIX IV SCH (10:10)
[2019-04-25] MEDS ORDERED: DUONEB (A & A) INH PRN (14:08)
--- NOTE | 2019-04-25 14:43 | PROGRESS NOTE ---
DATE: 04/25/2019 SUBJECTIVE: This morning Ms. Manrique refers to be doing a little better. She says she has had a couple outputs on her ostomy. By the time I got to see her the bag has been changed and it was empty. She does complain of cough and congestion in her lungs. She has been coughing up some grayish expectoration. OBJECTIVE: Vitals: Blood pressure is 162/81, pulse of 93, respiration is 15, temperature 98.1 degrees, patient T-max has been 99.2. General: Ms. Manrique 73-year-old female she was sitting up in the chair. NGT was still in place and draining. She looked comfortable. Mucosa was pink and moist. Anicteric. Acyanotic. Neck: Supple. Chest: Air entry was bilaterally reduced. There are some crackles in the posterior lung garrett. Cardiovascular: Regular rate and rhythm. No murmurs, no rubs, no gallops. Abdomen: Soft. Bowel sounds present. There is an ostomy on the left side which was empty. However, according to her this was changed early this morning. Extremities: No pedal edema. DEPUTY DIRECTOR OF NURSING: Patient is awake, alert, and oriented. LABORATORY DATA: Has been reviewed. WBC is 14.59, continues to go down, hemoglobin is 11.1, platelet count of 437,000. Chemistry is also reviewed, potassium is 3.3, magnesium of 1.6. So far blood cultures have been 48 hours negative. The patient continues to be on lactated Ringer's NPO. I's and O's, NG tube output for 24 hours was 850, patient seems to have a gastric drainage output. I am not sure if it is part of the NG tube or the ostomy drain. There is no independent documentation of the ostomy output that the patient refers to. ASSESSMENT: 1. Small bowel obstruction. Patient continues to be NPO. Nasogastric tube is in place, surgery on board. Will get a KUB today, per the patient she has had some output in the ostomy so it appears that the transit has reestablished itself, will wait for surgery further recommendations after they evaluate her today. 2. Diabetes mellitus controlled. 3. Large inoperable abdominal wall hernia. 4. Small hiatal hernia on CT scan. 5. Severe abdominal aortic atherosclerosis. Patient will be started on statin once the oral route has been reestablished. 6. Cough with mild bronchospasm concerning for possible pneumonia being developing. Will get a chest x-ray. Patient does have a mild elevation in the WBC. We will follow up on the x-ray results. cc: Federico Troncoso MD MTDD
--- NOTE | 2019-04-25 15:21 | Diag Imaging Result Doc PS360 ---
EXAM: FLAT/UPRIGHT ABD/1 VIEW CHEST INDICATION: SOB/SBO TECHNIQUE: 3 views COMPARISON: Abdominal radiograph dated 04/23/2019 FINDINGS: The NG tube projects below the diaphragm and is assumed to be in the lumen of the stomach in expected position. The amount of gas in small bowel has decreased during the interval. There are now unremarkable bowel gas and stool patterns. There is no obstructive bowel pattern by plain radiograph. There is no evidence of large volume free abdominal gas. The lungs are grossly clear. There is no discrete pleural fluid collection or pneumothorax. The cardiomediastinal silhouette and central vasculature are grossly unremarkable. IMPRESSION: Decrease in the amount of patchy small bowel gas as compared to the previous study. Stable, otherwise. Electronically signed by Enrico Matos 04/25/2019 3:19 PM
[2019-04-25] MEDS: DUONEB (A & A) INH PRN ×2 (16:01→22:24)
--- NOTE | 2019-04-25 21:37 | GENERAL SURGERY PROGRESS NOTE ---
DATE: 04/25/2019 SUBJECTIVE: She has had flatus and stool per her ostomy. No fevers. Pulse 64, blood pressure 131/71.General: She is alert. Cardiovascular: Normal rate. NG tube output is decreasing. Abdomen: Soft, nontender, nondistended. Ostomy is in the left lower quadrant. LAB: White count 14, hematocrit 34, creatinine 0.6. ASSESSMENT AND PLAN: A 73-year-old female with bowel obstruction seems to be resolved and she started having ostomy output. We will place her NG tube to gravity and plan on removing it tomorrow she tolerates. cc: Nestor Arzola MD
[2019-04-26] MEDS: MORPHINE IV PRN ×2 (00:19→03:30)
[2019-04-26] MEDS: LR 1,000 ML IV SCH ×3 (00:24→18:09)
[2019-04-26] MEDS: HUMULIN R SUBQ SCH ×4 (06:19→22:14)
[2019-04-26] MEDS: SODIUM CHLORIDE 0.9% INJ SCH (10:26)
[2019-04-26] MEDS: LOVENOX SUBQ SCH (10:26)
[2019-04-26] MEDS: PROTONIX IV SCH (10:26)
[2019-04-26] MEDS: DUONEB (A & A) INH PRN ×2 (10:54→15:45)
--- NOTE | 2019-04-26 14:55 | PROGRESS NOTE ---
DATE: 04/26/2019 SUBJECTIVE: This morning Ms. Manrique refers to be doing a lot better. No new complaints this morning. Her NG tube is out, and for today she has not had any output in her ostomy. She was tolerating a clear diet at the time of the encounter. Son was at the bedside. OBJECTIVE: Vital signs: Blood pressure is 107/78, pulse of 97, respirations 18, temperature 99.1 degrees. General: Ms. Manrique is a 73-year-old lady. She is sitting on a chair. No distress. HEENT: Mucosa is pink and moist. Anicteric. Acyanotic. Neck: Supple. Chest: Clear to auscultation. No crepitations. No rhonchi. Cardiovascular: Regular rate and rhythm. No murmurs, no rubs, no gallops. Abdomen: Soft. There is an ostomy on the left side. It is empty. COMMERCIAL GREEN BUILDING ARCHITECT: Patient is awake, alert, and oriented. LABORATORY DATA: None for today. Patient's glucose was 109. IMAGING STUDIES: No imaging studies for this morning. However, a chest x-ray yesterday showed decrease in the amount of patchy small-bowel gas, and the chest did not show any abnormality. ASSESSMENT: 1. Small bowel obstruction. Seems to be progressively getting better. Patient is tolerating clear liquids today. NG tube has been removed. She has not had any output, however, in her ostomy since yesterday. 2. Diabetes mellitus, controlled. 3. Large inoperable abdominal wall hernia. 4. Severe abdominal aortic atherosclerosis noted. 5. Mild bronchospasm, resolved. Chest x-ray was unremarkable. 6. History of previous colorectal cancer status post diverting colostomy and adjuvant therapy in the past. PLAN: In general, I think Ms. Manrique is doing well. We are going to continue to follow up clinically. She has been started on clear liquids. She seems to be tolerating that. We will follow up in the morning and see how she is doing. cc: Federico Troncoso MD
[2019-04-26] MEDS: MYCOSTATIN SUSP PO SCH ×2 (18:09→22:07)
--- NOTE | 2019-04-26 22:03 | GENERAL SURGERY PROGRESS NOTE ---
DATE: 04/26/2019 SUBJECTIVE: She continues to have some flatus, bowel movements per ostomy no nausea or vomiting. Her NG tube came out overnight. No fevers. OBJECTIVE: Vital signs: Pulse 83, blood pressure 149/60, oxygen saturation 98%. General: She is alert. Cardiovascular: Normal rate. Pulmonary: No increased work of breathing. Abdomen: Soft, nontender, nondistended. ASSESSMENT AND PLAN: This is a 73-year-old female with apparent resolving bowel obstruction. We will give her slow advancement of her diet with clear liquids and maybe soft diet tomorrow if she tolerates. cc: Nestor Arzola MD MTDD
[2019-04-27] MEDS: HUMULIN R SUBQ SCH ×3 (07:33→16:47)
[2019-04-27] MEDS: LR 1,000 ML IV SCH ×2 (07:34→17:04)
[2019-04-27] MEDS: PROTONIX IV SCH (10:17)
[2019-04-27] MEDS: MYCOSTATIN SUSP PO SCH ×4 (10:17→20:46)
[2019-04-27] MEDS: MIRALAX PO SCH ×2 (10:17→20:47)
[2019-04-27] MEDS: SODIUM CHLORIDE 0.9% INJ SCH (10:17)
[2019-04-27] MEDS: LOVENOX SUBQ SCH (10:19)
--- NOTE | 2019-04-27 14:13 | GENERAL SURGERY PROGRESS NOTE ---
DATE: 04/27/2019 SUBJECTIVE: She is doing okay. Continues to have flatus and stool per her ostomy. No vomiting, not since the NG tube is out. PHYSICAL EXAMINATION: Her abdomen is soft, nontender, nondistended. PLAN: We will advance her diet to soft. I have encouraged to be out of bed. I have started her on MiraLAX twice daily. cc: Nestor Arzola MD
[2019-04-27] MEDS: DUONEB (A & A) INH PRN ×2 (15:38→21:30)
--- NOTE | 2019-04-27 20:55 | PROGRESS NOTE ---
DATE: 04/27/2019 SUBJECTIVE: Today, Ms. Manrique refers to be doing a lot better. No nauseation. No vomiting. There is fecal material in the ostomy bag. She denies any abdominal pain. OBJECTIVE: Vital signs: Blood pressure is 155/62, pulse of 71, respiration is 18, temperature is 98.1 degrees. General: Ms. Manrique is a 73-year-old, female. She is in bed, in no distress. Mucosa is pink and moist. Anicteric. Acyanotic. Neck: Supple. Chest: Clear to auscultation. No crepitations. No rhonchi. Cardiovascular: Regular rate and rhythm. No murmurs. No rubs. No gallops. Gastrointestinal: Abdomen is soft, nontender. Bowel sounds are present. There is an ostomy on the left side of the abdominal wall which has some fecal material. Extremities: No pedal edema. Central nervous system: Patient is awake, alert, and oriented. LABORATORY DATA: None for today. Patient's glucose was 148. Blood cultures have been 48-hours negative. CURRENT MEDICATIONS: Have all been reviewed. ASSESSMENT: 1. Small bowel obstruction. Improving on conservative management and NG tube has been removed. Ileostomy bag has some fecal material today. Surgery has evaluated the patient. 2. Diabetes mellitus. Controlled. 3. Large inoperable abdominal wall hernia noted. 4. Severe abdominal aortic atherosclerosis noted. The patient will be started on statin. 5. Mild bronchospasm. Resolved. 6. History of previous colorectal cancer, status post diverting colostomy and adjuvant therapy. PLAN: In general, I think Ms. Manrique is doing a whole lot better today. She is having some fecal material in the ostomy bag. She has been started on MiraLAX and Surgery has advanced her diet to GI soft. cc: Federico Troncoso MD
[2019-04-27] MEDS ORDERED: LANTUS INSULIN SUBQ SCH (21:00)
[2019-04-28] MEDS: HUMULIN R SUBQ SCH ×2 (06:20→10:57)
[2019-04-28] MEDS: MIRALAX PO SCH ×2 (07:49→10:58)
[2019-04-28] MEDS: MYCOSTATIN SUSP PO SCH ×2 (07:50→10:59)
[2019-04-28] MEDS: LOVENOX SUBQ SCH ×2 (07:50→10:59)
[2019-04-28] MEDS: PROTONIX IV SCH (07:51)
[2019-04-28] MEDS: DUONEB (A & A) INH PRN (10:28)
[2019-04-28] MEDS: LR 1,000 ML IV SCH (10:58)
[2019-04-28 12:01] VITALS: BP 178/66
--- NOTE | 2019-04-29 02:45 | GENERAL SURGERY PROGRESS NOTE ---
DATE: 04/28/2019 SUBJECTIVE: She had a large bowel movement overnight, she is tolerating soft diet. She is getting dressed, ready to go home. No fevers. No tachycardia. OBJECTIVE: General: She is alert. Cardiovascular: Normal rate. Abdomen: Soft, nontender, nondistended. LABS: No new labs this morning. ASSESSMENT AND PLAN: A 73-year-old female admitted with a bowel obstruction. This is resolved. I can see her in the next week in follow up as an outpatient. cc: Nestor Arzola MD
--- NOTE | 2019-04-29 20:19 | DISCHARGE SUMMARY ---
ADMISSION DATE: 04/22/2019 DISCHARGE DATE: 04/28/2019 DISPOSITION: Home. INVASIVE PROCEDURES: None. IMAGING STUDIES OF SIGNIFICANCE: A CT scan of the abdomen and pelvis was initially done which showed a small bowel obstruction with transition in the left pelvis, abdominal wall hernias, small hiatal hernia, constipation, severe atherosclerosis, prolapsed urinary bladder. Subsequently multiple KUBs were done, 1 done 2 days ago show unremarkable gas pattern. ADMISSION DIAGNOSIS: 1. Small-bowel obstruction. 2. Nausea, vomiting. 3. Diabetes mellitus. Deep vein thrombosis prophylaxis. DIAGNOSIS AT THE TIME OF DISCHARGE: 1. Small bowel obstruction on admission that got improved with conservative management, surgery was on board. 2. Diabetes mellitus controlled. 3. Large inoperable abdominal wall hernias. 4. Severe abdominal aortic atherosclerosis. 5. Mild bronchospasm during the hospital course resolved. 6. History of previous colorectal cancer status post diverting colostomy and adjuvant therapy. 7. Hypertension. DISCHARGE MEDICATIONS: 1. [place]. 2. Amitriptyline 25 mg p.o. at bedtime. 3. Hydrochlorothiazide 25 mg p.o. q.a.m. 4. Metformin 1000 b.i.d. 5. Cyanocobalamin. 6. Dulaglutide 0.75 mg subcu every 7 days. 7. Nizatidine 150 p.o. b.i.d. 8. Zofran p.r.n. 9. MiraLAX 17 g p.o. daily. 10. Tolterodine . 11. Amlodipine/atorvastatin. 12. Klonopin 0.5 p.o. daily. 13. Meclizine 25 mg b.i.d. p.r.n. PRESENTING COMPLAINT: Abdominal pain, nausea and vomiting. HISTORY OF PRESENTING COMPLAINT: Ms. Manrique is a 73-year-old female who had a colorectal cancer in the past status post adjuvant therapy and diverting colostomy, came to the emergency department because of abdominal pain, nausea, vomiting and no output in the colostomy. Upon presentation she was evaluated. A CAT scan of the abdomen did reveal small bowel obstruction. She was admitted to the medical floor. HOSPITAL COURSE: Initially Ms. Manrique was made NPO, NG tube was put in for upper GI decompression and was fluid resuscitated, pain was managed. Over the course of the hospital stay she continues to improve and she started having fecal material in her ostomy. NG tube was subsequently removed under the recommendation from surgery and patient was started on clears. This was subsequently advanced until where she was able to tolerate GI soft diet. Today Ms. Manrique refers to be doing a lot better. I was there when her ostomy was being changed, there is a lot of fecal material was able to come out and she felt better. We think she is now clinically stable to be discharged. She has been counseled on adequate hydration to prevent constipation and also dietary recommendation to avoid any intestinal obstructions. All the discharge instruction discussed with her and she voiced understanding. TIME SPENT: 38 minutes. cc: Nestor Arzola MD
== END 2019-04-28 14:54 | disposition home or self-care (01) | DRG 390 ==
LOC: ED 21:49 → 3N 04-22 08:07 → SUATTDRO 04-22 08:07
PROVIDERS: ATTEND Internal Medicine